=== PATIENT | female | born 2005 | race Caucasian/White ===

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

== ENCOUNTER 2025-11-08 10:57 | Outpatient (AMB) | payer OTHER, SELFPAY ==
--- NOTE | 2025-11-08 10:59 | A.OFFPC_ITS ---
Vital Signs 11/08/25 11:04 Height 5 ft 3 in Weight 183 lb BMI 32.4 BP 101/66 Blood Pressure Location Lt brachial Position Sitting Respiration 12 Pulse 69 Pulse Source Pulse Oximeter Temp 97.2 F Temp Source Oral Pulse Oximetry (%) 100 Oxygen Delivery Method Room Air Intake Visit Reasons: est care/req cpe Intake Note: New patient to establish care and cpe. [facility] [employer] Required: No Allergies No Known Allergies Allergy (Verified 11/08/25 11:00) Medication List - Last Reviewed 11/08/25 by Mateo Wolf MA loratadine 10 mg PO DAILY Tobacco use date assessed: 11/08/25 Dental Screening Dental Screen Date: 11/08/25 Did you have a dental visit in the last 12 months?: No Did you have a dental problem in the last 6 months where you did not have access to dental care?: No Was dental information given to patient?: Patient has dentist HPI HPI Comments History of Present Illness Details 20 y/o F with mild intermittent asthma, obesity Fhx: MGM with TAP PULLER ca, dm2; MGF stroke; PGM DM, cancer unsure; Dad substance use and asthma; estranged from Dad side; 3 sisters alive and well; 1 brother alive and well. Surgery: Denies Social: Living w/ Mom and sisters; [employer], grad in Spring 2025 Health Maintenance Flu 11/08/25 Tdap 2016 Pap NA Specialists: None History of Present Illness The patient is a 20 year old female presenting with establishing care for a CPE [facility] records reviewed Mild Intermittent Asthma: - The patient has a history of mild inte rmittent asthma since childhood, which primarily occurs when she is ill. - She does not currently have an inhaler and reports not feeling the need for one at this time. Seasonal Allergies: - The patient has seasonal allergies and takes loratadine daily. Obesity: - The patient has a history of obesity w ith a recorded BMI of 32.4. Irregular menstruation: - The patient has had irregular periods since menarche. - She reports that her periods are somet imes heavy and last for about four days when they occur. - She denies bad cramping and has never been on control to regulate her periods. - She describes experiencing pre-menstru al cramps even when her period does not start. - The patient is not sexually active and has never been sexually active. Past Medical History - Mild intermittent asthma, mainly when sick, not on medication, and does not feel she needs an inhaler. - Seasonal allergies, for which she take s loratadine daily. - Obesity with a BMI of 32.4. - Irregular menses since menarche, somet imes heavy, lasting about four days, without significant cramping. - No medication allergies. - History of needle phobia. Past Surgical History - No history of surgery. Social History - Marital Status: Single - Education: She is a student at [employer], studying marketing, and is expected to graduate in the spring. - Living Situation: Lives at home with h er mother and sisters, but is currently dorming for college. - Sexual History: Not sexually active, h as never been sexually active. - Substance Use: Denies smoking. - Diet: Reports eating a diet that inclu daniel everything and is not vegetarian. - Safety: Reports wearing a seatbelt whi le driving. 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 Health Maintenance - Immunizations: She is up to date on al l immunizations except for the flu shot, which she received during the visit. - Contraception: Patient agreed to start oral contraceptive pills () to regulate her menstrual cycle. - Screenings: Patient declines screening labs for diabetes and cholesterol at this time. - Dental Care: Has not seen a dentist in a few years but has an appointment scheduled. - Self-breast exams: Educated on how and when to perform self-breast exams. Review of Systems - Constitutional: Denies any current bot adrianne symptoms and reports feeling good. - Eyes: Reports wearing glasses. - Ears: Reports hearing is okay. - Gastrointestinal: Reports normal bowel movements. Denies being on a vegetarian diet. - Genitourinary: Reports normal urinatio n. Reports irregular menstrual cycles since menarche, which can be heavy at times and last about four days. Reports pre-menstrual cramping without subsequent menses. Denies severe cramping. - Skin: Denies any worries with skin, ne w lumps, or bumps. - Neurological: Denies pain or tendernes s in the neck. - Psychiatric: Denies symptoms of depres katie or anxiety. - Endocrine: Denies any changes to breas ts. Physical Exam General: Well developed, well nourished, in no acute distress. Appears stated age. Head: Normocephalic, atraumatic. Eyes: Pupils are equal, round and reactive to light and accommodation. Conjunctivae are clear. Scleras nonicteric bilat. Vision grossly normal. Ears: TMs clear AU, EACS WNL. Hearing is okay. Nose: Patent, without discharge. Neck: No carotid bruit bilat. Supple, no adenopathy or thyromegaly. No pain or tenderness. Breast: Edu on SBE. Patient advised to perform self breast exams. Lungs: Clear to auscultation bilaterally. No rales, rhonchi or wheeze noted. Good air flow in all jamison. Heart: Regular rate and rhythm. No murmurs, click, rubs or gallops are noted. Abdomen: Bowel sounds present in all quadrants. The abdomen is soft, nontender, with no masses or organomegaly noted. No hernias are noted. : Deferred. Reviewed recommendations for routine TAP PULLER. Periods are irregular, sometimes heavy, lasting about four days. No bad cramping. Not on control. Pulses: Peripheral pulses are equal and palpable bilaterally. Extremities: No clubbing, cyanosis nor edema is noted. Neurologic: Gait and station normal. Cranial Nerves 2-12 intact. Motor strength grossly symmetrical and intact. No sensory loss. Balance normal. Skin: No rashes, ulcers, or lesions noted. Turgor is good. Skin color is good. Hair and nails are without abnormalities. Psych: Normal eye contact, affect and mood appropriate, and normal interactions. Patient is alert and appropriate to context. Depression and anxiety screens negative. Medical Decision Making The patient is a 20-year-old female presenting to [facility]. Her medical history is significant for mild intermittent asthma, seasonal allergies, obesity, and irregular menstrual cycles. The asthma is stable and does not require maintenance medication. Given her irregular periods, which have been present since menarche, a discussion was had regarding management options. The patient agreed to try oral contraceptive pills (Junel) to regulate her cycle, improve potential cramping, and benefit her skin. The rationale for choosing Junel was discussed, noting her sister tolerates it well. It was explained that it can take up to a year for periods to fully regulate, especially with a history of irregular cycles, but improvement is often seen within three months. Preventive care was also discussed. The patient is up to date on immunizations and received a flu shot during the visit despite her needle phobia. Screening for diabetes and cholesterol was offered but deferred by the patient at this time, with an agreement to perform labs in the future. The patient was educated on the importance and technique of self-breast exams, with instructions to perform them monthly. A follow-up in six months was scheduled to assess the new control medication, with a yearly physical also booked. Plan 1. Irregular Menstruation - The patient agreed to start oral contr aceptive pills (Junel) to regulate her menstrual cycles. - A prescription for Junel was sent [facility], [facility] on [address] [address] in [place]. - The patient was counseled that it may take up to a year for her periods to become regular, but improvement is often seen within three months. - A follow-up visit is scheduled in six months to assess her tolerance and the effectiveness of the control. 2. Establishment Of Care - The patient established care today. A complete physical exam was performed. - Health maintenance was reviewed. The p megan's asthma is stable. She received an influenza vaccine. Screening labs were deferred at her request. - The patient was provided instructions on how to sign up for the [facility] patient portal. - A physical form was completed for her school. - A follow-up appointment for her next a nnual physical exam was scheduled in one year. 3. Self-Breast Exam Education - The patient was educated on the import ance of self-breast exams. - Instructions were given to perform the exam monthly, on a set day such as her date, since her periods are irregular. - She was advised to [employer] self breast exam for a YouTube video demonstration. - The patient was instructed to report a ny new or concerning changes that do not resolve. Patient Instructions - You will receive an influenza (flu) sh ot today. - Take your new control pill, Elina l, once every day. Try to take it at the same time each day. - Your periods may be irregular for the first few months to a year on the new control. This is normal. Your period should come during the last week of the pill pack. - Perform a self-breast exam once a galo h. Since your periods are not regular, pick a day of the month that is easy to remember, like the day of your birthday, to do the exam. - You can search for self breast exam on Google to find a video showing you how to do it properly. - Contact me through the patient portal if you have any problems with the control or notice any changes in your breasts. - At the lockstitch front edge tape sewer, please update your email address so you can sign up for the [facility] patient portal nadira. This is the best way to contact me. - Schedule your next appointment for 6 [facility] from now to check on the control, and also book your yearly physical for one year from today. - Make sure to keep your scheduled denti st appointment. Consent Patient was informed and verbally consented to the use of an ambient scribe for clinic note documentation during this visit. An additional 20 minutes was spent addressing the problem(s) noted at todays visit. This includes time spent before the visit reviewing the chart, time spent during the visit, and time spent after the visit on documentation reviewing laboratory results, diagnostic imaging, medications, performing a medically necessary evaluation, counseling on diagnoses, care coordination, ordering appropriate tests, ordering appropriate medications, review of tests performed by other providers, reporting test results with the patient, communication with other healthcare providers. [facility] Medical History (Updated 11/08/25 @ 11:43 by [facility] Asthma Surgical History (Updated 11/08/25 @ 11:08 by Mateo Wolf MA) No pertinent past surgical history Family History (Updated 11/08/25 @ 11:09 by Mateo Wolf MA) Father Asthma Maternal Grandmother HTN (hypertension) Maternal Grandfather High blood cholesterol Social History (Updated 11/08/25 @ 11:07 by Mateo Wolf MA) Household Members: Other Household Members Other:: Dorm Both parents involved: Yes Caregiver staying overnight: No Housing: Apartment Are you a primary critical care registered nurse to a significant other at home: No Do you presently have visiting nurse or other home services: No 75 years or older and lives alone: No Alcohol intake: never Patient Tobacco Use Status: Never used Tobacco Smoked in Last 30 Days: No e-Cigarette/Vaping Use: Never Used Second Hand Smoke Exposure: No service: No Current occupational status: student Current occupational exposures/hazards: No Cognitive needs: No Hearing needs: No Vision needs: No Questionnaire PHQ-9 Over the last 2 weeks, how often have you been bothered by any of the following problems? 1. Little interest or pleasure in doing things: not at all 2. Feeling down, depressed, or hopeless: not at all 3. Trouble falling or staying asleep, or sleeping too much: not at all 4. Feeling tired or having little energy: not at all 5. Poor appetite or overeating: not at all 6. Feeling bad about yourself - or that you are a failure or have let yourself or your family down: not at all 7. Trouble concentrating on things, such as reading the newspaper or watching television: not at all 8. Moving or speaking so slowly that other people could have noticed. Or the opposite - being so fidgety or restless that you have been moving around a lot more than usual: not at all 9. Thoughts that you would be better off or of hurting yourself in some way: not at all Total score: 0 Depression Screening Interpretation: Negative Depression Screening Done: Yes 38171 - PHQ-9 Billing: Yes Source: Developed by Drs. Mark Hudson, Carolina Lees, Calvin Morris and colleagues, with an educational cindy from [employer]. Thrive Questionnaire Date Thrive assessed: 11/08/25 I am a: Patient What is your living situation today?: I have a steady place to live Within the past 12 months, did the food you bought not last and you didn't have the money to get more?: Never true Within the past 12 months, did you worry whether your food would run out before you got money to buy more?: Never true Do you have trouble paying for medicines?: No Do you have trouble getting transportation to medical appointments?: No Do you have trouble paying your heating and electricity bill?: No Do you have trouble taking care of your child, family member or friend?: No Do you have trouble with day-to-day activities such as bathing, preparing meals, shopping, managing finances, etc.?: No Are you currently unemployed and looking for a job?: No Are you interested in more education?: Yes Please select the resources that you would like help with: None Currently or been in a relationship where the following occur: No concerns reported THRIVE Score: 0 AUDIT C Alcohol Use Questionnaire (AUDIT-C) 1. How often do you have a drink containing alcohol?: Never 3. How often do you have six or more drinks on one occasion?: Never Total Score: 0 Score Reviewed/Action Taken: Yes RAF-7 AMB Questionnaire RAF-7 Date RAF - 7 assessed: 11/08/25 Feeling nervous, anxious, or on edge: 0 = Not at all Not being able to stop or control worryin = Not at all Worrying too much about different things: 0 = Not at all Trouble relaxin = Not at all Being so restless that it is hard to sit still: 0 = Not at all Becoming easily annoyed or irritable: 0 = Not at all Feeling afraid as if something awful might happen: 0 = Not at all Total RAF-7 score (0-4 normal; 5-9 mild; 10-14 moderate; 15-21 severe): 0 Source: Developed by Drs. Mark Hudson, Carolina Lees, Calvin Morris and colleagues, with an educational cindy from [employer]. RAF-7 Assessment Billing RAF-7 Assessment Tool: RAF-7 Assessment 41914 ACT Questionnaire In the past 4 weeks, how much of the time did your asthma keep you from getting as much done at work, school or at home?: None of the time During the past 4 weeks, how often have you had shortness of breath?: Not at all During the past 4 weeks, how often did your asthma symptoms wake you up at night or earlier than usual in the morning?: Not at all During the past 4 weeks, how often have you had to use your rescue inhaler or n ebulizer medication?: Not at all How would you rate your asthma control during the past 4 weeks?: Completely controlled ACT Interpretation: Negative Score: 25 Physical exam (Primary Care) Vital Signs: Last Vital Signs Temp 97.2 F 11/08/25 11:04 Pulse 69 11/08/25 11:04 Resp 12 11/08/25 11:04 BP 101/66 11/08/25 11:04 Pulse Ox 100 11/08/25 11:04 Oxygen Delivery Method Room Air 11/08/25 11:04 BMI result Body Mass Index 32.4 Tobacco/Smoking Status: Tobacco use Status Tobacco use date assessed 11/08/25 11/08/25 11:03 Patient Tobacco Use Status Never used Tobacco 11/08/25 11:07 e-Cigarette/Vaping Use Never Used 11/08/25 11:07 PHQ-9: PHQ-9 Score PHQ-9: Total score 0 11/08/25 11:26 Depression Screening Interpretation: Negative Thrive Assessment: Date of Thrive Assessment Date Thrive assessed 11/08/25 11/08/25 11:03 Currently or been in a relationship where the following occur: No concerns reported Office Procedures Flu Questionnaire Does the patient have a severe egg allergy?: No Does the patient have severe life threatening allergies?: No Does the patient have a fever or illness today?: No Has the patient ever had Guillain-[place] Syndrome?: No Has the patient ever had any past reaction to a flu shot?: No Immunizations Fluarix [id number] (PF) 45 mcg (15 mcg x 3)/0.5 mL IM syringe Performing Provider: SAMI Dexter Performing Location: [facility] Administered by: Mateo Wolf MA on 11/08/25 11:41 Dose Route Admin Location Dispensed Lot Number Expiration Date NDC Non Destructive Testing Engineer 0.5 mL IM Right Deltoid 0.5 mL [id number] 05/23/26 10280-770-57 [id number] VIS Given Date VIS Provided VIS Publication Date 11/08/25 Single Vaccine 24 Eligibility Eligibility Date Funding Source Not [facility] Eligible 11/08/25 Private Coding Level of Care Code New Pt Level 2 (72357) New Pt Prev Care 18-39yr(37493 Diagnoses Encounter to establish care with new provider Z76.89 Obesity (BMI 30-39.9) E66.9 Mild intermittent asthma in adult without complication J45.20 Primary oligomenorrhea N91.3 Oligomenorrhea type: primary OCP (oral contraceptive pills) initiation Z30.011 Influenza vaccination administered at current visit Z23 Family history of stroke Z82.3 Adult general medical exam Z00.00 Additional Codes RAF-7 Assessment Billing - RAF-7 Assessment Tool: RAF-7 Assessment 71379 ([id number]) PHQ-9 - 82756 - PHQ-9 Billing: Yes ([id number]) Asthma Control Questionnaire - ACT Interpretation: Negative ([id number]) Assessment & Plan Assessment & Plan (1) Encounter to establish care with new provider: Code(s): Z76.89 - Persons encountering health services in other specified circumstances (2) Obesity (BMI 30-39.9): Code(s): E66.9 - Obesity, unspecified Category: Medical (3) Mild intermittent asthma in adult without complication: Code(s): J45.20 - Mild intermittent asthma, uncomplicated Category: Medical (4) Oligomenorrhea: Code(s): N91.5 - Oligomenorrhea, unspecified Category: Medical Qualifiers: Oligomenorrhea type: primary Qualified Code(s): N91.3 - Primary oligomenorrhea (5) OCP (oral contraceptive pills) initiation: Code(s): Z30.011 - Encounter for initial prescription of contraceptive pills Category: Medical (6) Influenza vaccination administered at current visit: Onset Date: ~11/08/25 Code(s): Z23 - Encounter for immunization Category: Medical (7) Family history of stroke: Comment: [facility] Code(s): Z82.3 - Family history of stroke Category: Medical (8) Adult general medical exam: Onset Date: ~11/08/25 Code(s): Z00.00 - Encounter for general adult medical examination without abnormal findings Category: Medical Plan . Orders: Orders Influenza [id number] Immunization Today Z23 - Encounter for immunization Medications: New norethindrone ac-eth estradiol 1.5-30 mg-mcg (Junel) 1 tab PO DAILY 63 tabs 2RF Patient Instructions: Patient Instructions - You will receive an influenza (flu) shot today. - Take your new control pill, Junel, once every day. Try to take it at the same time each day. - Your periods may be irregular for the first few months to a year on the new control. This is normal. Your period should come during the last week of the pill pack. - Perform a self-breast exam once a month. Since your periods are not regular, pick a day of the month that is easy to remember, like the day of your birthday, to do the exam. - You can search for self breast exam on [employer] to find a video showing you how to do it properly. - Contact me through the patient portal if you have any problems with the control or notice any changes in your breasts. - At the lockstitch front edge tape sewer, please update your email address so you can sign up for the [facility] patient portal nadira. This is the best way to contact me. - Schedule your next appointment for 6 months from now to check on the control, and also book your yearly physical for one year from today. - Make sure to keep your scheduled dentist appointment. Walk-In Care (Urgent Care): We Make it Easy Walk-in for urgent medical issues such as: ? Seasonal Allergies ? Insect Bites ? Cough ? Diarrhea ? Acute Asthma Attacks ? Back, Knee or Joint Pain ? Ear Infection ? Fever without a Rash ? Headaches ? Nausea ? Schu[place] Eye, Rash or Skin Irritation ? Sore Throat ? Sports Physicals ? Vomiting Most insurances are accepted. Patients do not need to be part of the [facility] [place] [facility] to seek care at the walk-in clinic. Locations [address] [place] [address] Open Friday through Friday 8am-5pm *Hours may vary due to staffing availability. To confirm Walk-In Care hours please call. [facility] , [place] [address] ? [phone] [facility] Walk-In Care in [place] provides services to ages 18 and over. Open Friday-Friday: 7 a.m. to 5 p.m. and Friday: 9 a.m. to 3 p.m.* *Hours may vary due to staffing availability. To confirm Walk-In Care hours in [place], please call [phone]. [address] [place] [address] ? [phone] [facility] Walk-In Care in [place] provides services to ages 12 and over. Open Friday-Friday: 8 a.m. to 5 p.m. Hours may vary due to staffing availability. To confirm Walk-In Care hours in [place], please call [phone]. LABORATORY SERVICES: [facility] ? Primary Location [address] [place] [address] Friday through Friday 6:00 AM ? 5:00 PM Friday 7:00 AM ? 11:00 AM* [phone] The [facility] is centrally located near the front entrance of the Medical Center for easy outpatient access. Convenient parking is provided for outpatients. *Hours may vary due to staffing availability. To confirm Laboratory hours for any location, please call [phone]. Offsite Location For your convenience, we offer offsite laboratory draw stations at the following locations: [address] [facility], [place] ? [facility] [address] [facility] [address], [address], [place] Friday through Friday 7:30 AM ? 1:00 PM* [phone] *Hours may vary due to staffing availability. To confirm Laboratory hours for any location, please call [phone]. [place] ? [facility] [address] [facility], [place] Friday through Friday 6:00 AM ? 3:30 PM* Friday 6:30 AM ? 3 PM* [phone] *Hours may vary due to staffing availability. To confirm Laboratory hours for any location, please call [phone]. [address] [facility] Friday through Friday 7:30 AM ? 4:00 PM* [phone] *Hours may vary due to staffing availability. To confirm Laboratory hours for any location, please call [phone] [place] [address] Friday through 9:00 AM ? 4:00 PM* *Hours may vary due to staffing availability. To confirm Laboratory hours for any location, please call [phone]. Appointments are not necessary. Walk-ins are welcome. Like all the departments throughout the [facility], our Lab undergoes frequent reviews to ensure the quality and accuracy of test results, and our staff takes special pride in its status as a nationally accredited facility. Patient Portal: [facility] ONE PATIENT. ONE RECORD. BETTER CARE. [facility] has a fully integrated, cutting- edge mobile electronic health information system that has revolutionized the way we care for our patients and manage our organization. This system improves communication and coordination enabling us to provide safe, higher-quality care, and an overall positive experience for staff and patients. Our first priority, as always, is to deliver the highest quality care possible. The system is running in the background supporting that priority. This portal is for all [facility] and [facility] services and practices. If you are experiencing any technical difficulties with enrolling or logging into the Patient Portal please complete the [facility] Patient Portal Technical Support Form. [facility] and [facility] now offers a new secure on-line interactive tool for patients to review their health information ? ?Patient Portal. This interactive web portal will enable patients and their families to take an active role in their care by providing easy, secure access to their health information via the internet. The Patient Portal provides patients with instant access to their health information, including laboratory results, medications, allergies, demographic information, visit history, and more. In addition to managing their own care, parents and health care proxies with authorized consent will appreciate the ability to access the records of those individuals for whom they provide care. Please note: if you wish to gain access (Proxy) to another patient?s portal, you will be required to come to the Medical Records Department in person at [facility]. Both the patient giving proxy access and the proxy will need to provide photo identification and complete the appropriate authorization. The Patient Portal also allows track their appointments online. The [facility] Patient Portal also saves patients time by allowing them to submit updates to their demographic and contact information prior to their visits. Portal email notifications will also alert patients to any new activity on their portal, such as test results and new appointments. In order to initially enroll in the [facility] Patient Portal, you will need to enter some required information including the following: * your [facility] Medical Record number * your personal home email address * name * date of Please note: In order to enroll in the [facility] Patient Portal, we need to have your email address on file in your electronic medical record. ?The email address needs to be specific for one person (yourself) in order for your Portal enrollment to be successful. ?You can update your email address in person with our Registration staff when you are registering for a hospital visit. ?O therwise, you will need to come to the Health Information Management (Medical Records) Department at [facility]. ?We are open from Friday ? Friday from 7:30 a.m. ? 4:30 p.m. ?You will be required to present a photo id. Once you have successfully enrolled in the Patient Portal, you will receive a one-time user id and password for the Portal, sent to your email address. ?This will allow you to log into the Patient Portal within 99 hrs and reset your own logon id and password, and define personal security questions. ?Once your permanent login and password have been set, you can log into the [facility] Patient Portal at any time via the blue button above or from the Portal Logon button on any page of the [facility] website. [facility] and [facility] encourage all of our patients to enroll in Patient Portal as it presents a valuable opportunity for patients and their families to actively participate in their care and stay healthy Welcome to [facility]. ?We look forward to working with you. Health screenings for women You should visit your health care provider from time to time, even if you are healthy. The purpose of these visits is to: Screen for medical issues Assess your risk for future medical problems Encourage a healthy lifestyle Update vaccinations and other preventive care services Help you get to know your provider in case of an illness Information Even if you feel fine, you should still see your provider for regular checkups. These visits can help you avoid problems in the future. For example, the only way to find out if you have high blood pressure is to have it checked regularly. High blood sugar and high cholesterol levels also may not have any symptoms in the early stages. A simple blood test can check for these conditions. There are specific times when you should see your provider or receive specific health screenings. The [place] Preventive Services Task Force publishes a list of recommended screenings. Below are screening guidelines for women ages 18 to 39. BLOOD PRESSURE SCREENING Your blood pressure should be checked at least once every 3 to 5 years if: Your blood pressure is in the normal range (top number less than 120 mm Hg and bottom number less than 80 mm Hg) You don't have risk factors for high blood pressure Ask your provider if you need your blood pressure checked more often if: The top number is 120 to 129 mm Hg or the bottom number is 70 to 79 mm Hg You have diabetes, heart disease, kidney problems, are overweight, or have certain other health conditions You have a first-degree relative with high blood pressure You are Black You had high blood pressure during a If the top number is 130 mm Hg or greater or the bottom number is 80 mm Hg or greater, this is considered stage 1 hypertension. Schedule an appointment with your provider to learn how you can reduce your blood pressure. Watch for blood pressure screenings in your area. Ask your provider if you can stop in to have your blood pressure checked. BREAST CANCER SCREENING Experts do not agree about the benefits of breast self-exams in finding breast cancer or saving lives. Talk to your provider about what is best for you. A screening mammogram is not recommended for most women under age 40. Your provider may discuss and recommend mammograms, MRI scans, or ultrasounds if you have an increased risk for breast cancer, such as: A mother or sister who had breast cancer at a young age (most often starting screening earlier than the age the close relative was diagnosed) You carry a high-risk genetic marker CERVICAL CANCER SCREENING Cervical cancer screening should start at age 21 years unless your provider advises otherwise. After the first test: Women ages 21 through 29 should have a Pap test every 3 years. Exoprts do not agree on whether HPV testing is recommended for this age group. Women ages 30 through 65 should be screened with either a Pap test every 3 years or the HPV test every 5 years or both tests every 5 years (called cotesting ). Women who have been treated for precancer (cervical dysplasia) should continue to have Pap tests for 20 years after treatment or until age 65, whichever is longer. If you have had your uterus and cervix removed (total hysterectomy), and you have not been diagnosed with cervical cancer or precancer (high grade cervical neoplasia), you do not need cervical cancer screening. CHOLESTEROL SCREENING Cholesterol screening should begin at: Age 45 for women with no known risk factors for coronary heart disease Age 20 for women with known risk factors for coronary heart disease Repeat cholesterol screening should take place: Every 5 years for women with normal cholesterol levels More often if changes occur in lifestyle (including weight gain and diet) More often if you have diabetes, heart disease, kidney problems, or certain other conditions DIABETES SCREENING You should be screened for diabetes starting at age 35 and then repeated every 3 years if you have no risk factors for diabetes. Screening may need to start earlier and be repeated more often if you have other risk factors for diabetes, such as: You have a first degree relative with diabetes. You are overweight or have obesity. You have high blood pressure, prediabetes, or a history of heart disease. Screening for diabetes should be done if you are planning to become and you are overweight and have other risk factors such as high blood pressure. DENTAL EXAM Go to the dentist once or twice every year for an exam and cleaning. Your dent ist will evaluate if you need more frequent visits. EYE EXAM Have an eye exam every 5 to 10 years before age 40. If you have vision problems, have an eye exam every 2 years or more often if recommended by your provider. You should have an eye exam that includes an examination of your retina (back of your eye) at least every year if you have diabetes. IMMUNIZATIONS Commonly needed vaccines include: Flu shot: get one every year. COVID-19 vaccine: ask your provider what is best for you. Tetanus-diphtheria and acellular pertussis (Tdap) vaccine: have one at or after age 19 as one of your tetanus-diphtheria vaccines if you did not receive it as an adolescent. Tetanus-diphtheria: have a booster (or Tdap) every 10 years. Varicella vaccine: receive 2 doses if you never had chickenpox or the varicella vaccine. Hepatitis B vaccine: receive 2, 3, or 4 doses, depending on your exact circumstances. Measles, mumps, and rubella (MMR) vaccine: receive 1 to 2 doses if you are not already immune to MMR. Your provider can tell you if you are immune. Ask your provider about the human papillomavirus (HPV) vaccine if: You have not received the HPV vaccine in the past You have not completed the full vaccine series (you should catch up on this shot) Ask your provider if you should receive other immunizations if you have certain health problems that increase your risk for some diseases such as pneumonia. INFECTIOUS DISEASE SCREENING Women who are sexually active should be screened for chlamydia and gonorrhea up until age 25. Women 25 years and older should be screened for chlamydia and gonorrhea if at high risk. Screening for hepatitis C: All adults ages 18 to 79 should get a one-time test for hepatitis C. people should be screened at every . Screening for human immunodeficiency virus (HIV): All people ages 15 to 65 should get a one-time test for HIV. Depending on your lifestyle and medical history, you may also need to be screened for infections such as syphilis and HIV, as well as other infections. PHYSICAL EXAM All adults should visit their provider from time to time, even if they are healthy. The purpose of these visits is to: Screen for disease Assess your risk of future medical problems Encourage a healthy lifestyle Update your vaccinations and other preventive care services Maintain a relationship with a provider in case of an illness Your height, weight, and BMI should be checked at every exam. During your exam, your provider may ask you about: Depression and anxiety Diet and exercise Alcohol and tobacco use Safety issues, such as using seat belts, smoke detectors, and intimate partner violence Your medicines and risk for interactions SKIN SELF-EXAM Your provider may check your skin for signs of skin cancer, especially if you're at high risk, such as if you: Have had skin cancer before Have close relatives with skin cancer Have a weakened immune system OTHER SCREENING Talk with your provider about colon cancer screening if you have a strong family history of colon cancer or polyps, or if you have had inflammatory bowel disease or polyps yourself. Routine bone density screening of women under 40 is not recommended.
[2025-11-08 11:04] VITALS: BP 101/66; PULSE 69; RESP 12; TEMP 36.2; O2SAT 100; BMI 32.4
--- OUTSIDE RECORDS SUMMARY | 2025-11-08 14:23 | XMS_ITS | Encounter Summary ---
Author Organization [facility] Address [address] [place] [address] Phone Care Team Providers Care Technical Trainer Name Role Phone Diamond Teresa MD Primary Care Provider Unavailab le Encounter Details Date Type Department Care Team (Late st Contact Info) Description 03/27/2016 Documentation [facility] [address] [place] [address] Family Medicine, Physician [address] [place] [address] Social History Tobacco Use Types Packs/Day Years Used Date Smoking Tobacco: Never Assessed Comments Unknown Sex and Gender Information Value Date Recorded Sex Assigned at Female 08/03/2021 11:23 AM EDT Legal Sex Female 5:06 PM EDT Gender Identity Female 08/03/2021 11:23 AM EDT Sexual Orientation Straight 08/03/2021 11 :23 AM EDT documented as of this encounter Plan of Treatment Not on file documented as of this encounter Visit Diagnoses Not on filedocumented in this encounter Care Teams Technical Trainer Relationship Specialty Start Date End Date Diamond Teresa MD PCP - General Pediatrics 04/29/18 05/10/19 documented as of this encounter
--- OUTSIDE RECORDS SUMMARY | 2025-11-08 14:23 | XMS_ITS | Encounter Summary ---
Author Organization [facility] Address [address] [place] [address] Phone Care Team Providers Care Basket Person Name Role Phone Diamond Teresa MD Primary Care Provider Unavailab le Encounter Details Date Type Department Care Team (Late st Contact Info) Description 05/31/2016 Documentation [facility] [place] [address] [place] [address] Family Medicine, Physician [address] [place] [address] Social History Tobacco Use Types Packs/Day Years [...] on filedocumented in this encounter Care Teams Basket Person Relationship Specialty Start Date End Date Diamond Teresa MD PCP - General Pediatrics 04/29/18 05/10/19 documented as of this encounter
--- OUTSIDE RECORDS SUMMARY | 2025-11-08 14:23 | XMS_ITS | Encounter Summary ---
Author Organization [facility] Address [address] [place] [address] Phone Care Team Providers Care Telephone Engineer Name Role Phone Diamond Teresa MD Primary Care Provider Unavailab le Encounter Details Date Type Department Care Team (Late st Contact Info) Description 04/25/2015 Documentation [facility] [place] [address] [place] [address] Family Medicine, Physician [address] [place] [address] Social History Tobacco Use Types Packs/Day Years [...] on filedocumented in this encounter Care Teams Telephone Engineer Relationship Specialty Start Date End Date Diamond Teresa MD PCP - General Pediatrics 04/29/18 05/10/19 documented as of this encounter
--- OUTSIDE RECORDS SUMMARY | 2025-11-08 14:23 | XMS_ITS | Encounter Summary ---
Author Organization [facility] Address [address] [place] [address] Phone Care Team Providers Care Property Maintenance Technician Name Role Phone Diamond Teresa MD Primary Care Provider Unavailab le Encounter Details Date Type Department Care Team (Late st Contact Info) Description 09/26/2014 Documentation [facility] [place] [address] [place] [address] Family Medicine, Physician [address] [place] [address] Social History Tobacco Use Types Packs/Day Years [...] on filedocumented in this encounter Care Teams Property Maintenance Technician Relationship Specialty Start Date End Date Diamond Teresa MD PCP - General Pediatrics 04/29/18 05/10/19 documented as of this encounter
--- OUTSIDE RECORDS SUMMARY | 2025-11-08 14:23 | XMS_ITS | Encounter Summary ---
Author Organization [facility] Address [address] [place] [address] Phone Care Team Providers Care Plan Checker Name Role Phone Diamond Teresa MD Primary Care Provider Unavailab le Encounter Details Date Type Department Care Team (Late st Contact Info) Description 11/10/2012 Documentation [facility] [place] [address] [place] [address] Family Medicine, Physician [address] [place] [address] Social History Tobacco Use Types Packs/Day Years [...] on filedocumented in this encounter Care Teams Plan Checker Relationship Specialty Start Date End Date Diamond Teresa MD PCP - General Pediatrics 04/29/18 05/10/19 documented as of this encounter
--- OUTSIDE RECORDS SUMMARY | 2025-11-08 14:23 | XMS_ITS | Encounter Summary ---
Author Organization [facility] Address [address] [place] [address] Phone Care Team Providers Care Webbing Weaver Name Role Phone Diamond Teresa MD Primary Care Provider Unavailab le Encounter Details Date Type Department Care Team (Late st Contact Info) Description 04/15/2014 Documentation [facility] [place] [address] [place] [address] Family Medicine, Physician [address] [place] [address] Social History Tobacco Use Types Packs/Day Years [...] on filedocumented in this encounter Care Teams Webbing Weaver Relationship Specialty Start Date End Date Diamond Teresa MD PCP - General Pediatrics 04/29/18 05/10/19 documented as of this encounter
--- OUTSIDE RECORDS SUMMARY | 2025-11-08 14:23 | XMS_ITS | Encounter Summary ---
Author Organization [facility] Address [address] [place] [address] Phone Care Team Providers Care Toe Stapler Name Role Phone Diamond Teresa MD Primary Care Provider Unavailab le Encounter Details Date Type Department Care Team (Late st Contact Info) Description 09/26/2014 Documentation [facility] [place] [address] [place] [address] Family Medicine, Physician [address] [place] [address] Social History Tobacco Use Types Packs/Day Years [...] on filedocumented in this encounter Care Teams Toe Stapler Relationship Specialty Start Date End Date Diamond Teresa MD PCP - General Pediatrics 04/29/18 05/10/19 documented as of this encounter
--- OUTSIDE RECORDS SUMMARY | 2025-11-08 14:23 | XMS_ITS | Encounter Summary ---
Author Organization [facility] Address [address] [place] [address] Phone Care Team Providers Care Welder Apprentice Arc Name Role Phone Diamond Teresa MD Primary Care Provider Unavailab le Encounter Details Date Type Department Care Team (Late st Contact Info) Description 04/25/2015 [place]ation [facility] [place] [address] [place] [address] Family Medicine, Physician [address] [place] [address] Social History Tobacco Use Types Packs/Day Years [...] on filedocumented in this encounter Care Teams Welder Apprentice Arc Relationship Specialty Start Date End Date Diamond Teresa MD PCP - General Pediatrics 04/29/18 05/10/19 documented as of this encounter
--- OUTSIDE RECORDS SUMMARY | 2025-11-08 14:23 | XMS_ITS | Clinical Summary ---
Author Organization [facility] Address [address] [place] [phone] Phone Care Team Providers Care Cartography Supervisor Name Role Phone Unavailable Primary Care Provider Unavailabl e Allergies No known active allergies Medications Ventolin HFA 108 (90 Base) MCG/ACT inhalerIndication s:Mild intermittent asthma without complication Inhale 2 puffs every 4 (four) hours as needed for wheezing or shortness of breath. 1 Units 3 Active loratadine 10 MG tabletIndications :Seasonal allergies TAKE 1 TABLET BY MOUTH DAILY 90 tablet 3 5 Active Active Problems Problem Noted Date Diagnosed Date Perennial allergic rhinitis 07/22/2024 Assessment & Plan (07/22/2024 5:56 PM EDT): Trial of claritin and Flonase. Gave paper rx because visit done during Epic downtime. Resolved Problems Problem Noted Date Diagnosed Date Resolved Date Pediatric obesity due to exc ess calories without serious comorbidity 06/24/2018 07/22/2024 Overview (08/20/2020): Discussed diet and exercise changes. Fasting lipid panel ordered. Mild intermittent asthma 08/01/2011 Overview (04/29/2018): Is off daily preventives for awhile and has very mild intermittent symptoms now, mostly with exercise. Uses albuterol MDI prn for rescue therapy rarely. 06/09. Assessment & Plan (07/22/2024 5:55 PM EDT): No meds in years. Will d/c diagnosis from problem list. ACT Score: 24 This score suggests that asthma symptoms are well controlled. Assessment & Plan (08/29/2022 2:02 PM EDT): Keeps albuterol inhaler at home, extremely rare use. Hasn't needed one in school in many years. Albuterol 2 puffs q4h prn. Assessment & Plan (08/03/2021 11:07 AM EDT): Doesn't ever need inhaler at school, hasn't kept one there in many years. Albuterol prn. Assessment & Plan (05/25/2021 4:07 PM EDT): Needs new MDI and aerochamber- prescribed today. Instructed to try for cough and if helpful, continue 2-4 puffs q4-6 hours during illness. Assessment & Plan (07/05/2019 2:32 PM EDT): Doing well, very mild intermittent. ACT score 25. Albuterol HFA prn, med order for school, Asthma Action Plan. Encounters Date Type Department Care Team Description 09/15/2025 Telephone [facility] - [address] [address] Sindy Campoverde MD Medical Records from Last 3 Months Immunizations Immunization Administration Dates Next Due COVID-19 Pfizer, bivalent, 12+ years 08/29/2022 DTaP 5 2009, 6,2005,07/02,2005 HPV Vaccine 9 Valent 06/24/2018,06/04/2017 Hep A, ped/adol 05/30/2016,04/24/2015 Hep B, ped/adol 2005,2005,2005 Hib (HbOC) 2005,2005,2005 Hib (PRP-T) 06/02/2006 IPV 2009, 6,2005,06/08 /2005 Influenza Split 09/15/2013,11/09/2012,08/01/2011 Influenza, injectable, quadrivalent 09/24/2016,1 Influenza, injectable, quadr ivalent, preservative free 07/18/2023,08/29/2022,08/03/2021,08/11,09/16/2019,09/26/2018 Influenza, injectable, trivalent 018,12/31/2017,09/19/2008,10/29 MMR 2009,02/28/2006 Meningococcal B Trumenba 07/18/2023,08/29/2022 Meningococcal Conj (Menactra) MCV4P 08/03/2021,0 06/04/2017 Pneumococcal Conjugate 06/02/2006,2004,2005,05/01 Tdap 05/30/2016 Varicella 2009,02/28/2006 Family History Medical History Relation Name Comments Asthma Father Substance abuse Father Cancer Maternal Grandmother Diabetes Maternal Grandmother Obesity Maternal Grandmother No Known Problems Mother Shey Ramirez Diabetes Paternal Grandmother No Known Problems Sister Neftaly Hayes Relation Name Status Comments Father Alive Father: Alive a nd well Maternal Grandfather Materna l uncle: Leukemia Maternal Grandmother Materna l grandmother: Diabetes mellitus, Hypertension Mother Shey Ramirez Alive Mother: Alive and well Paternal Grandmother Sister Neftaly Hayes Alive Social History Tobacco Use Types Packs/Day Years Used Date Smoking Tobacco: Never Smokeless Tobacco: Never Alcohol Use Standard Drinks/Week Comments No 0 (1 standard drink = 0.6 oz pur e alcohol) Hunger/Food Answer Date Recorded In the last 12 months, did y ou or your family ever eat less than you felt you should because there wasn't enough money for food? No 07/22/2024 Stable Housing Answer Date Recorded Are you worried that in the next 2 months you may not have stable housing? No 07/22/2024 Transportation Concerns Answer Date Rec orded In the last 12 months, have you or your family ever had to go without healthcare because you didn't have a way to get there? No 07/22/2024 Hazards in Home Answer Date Recorded Think about the place you li ve. Do you have problems with any of the following? Pests (mice or roaches), mold, no/not working smoke detectors, water leaks, no window guards. No 2023 Financing Utilities Answer Date Recorde d In the last 12 months, has t he electric, gas, oil, or water company threatened to shut off your services in your home? No 07/22/2024 Safety at Home Answer Date Recorded Are you or your family worried about feeling saf e in your home? No 07/22/2024 Outside Support Answer Date Recorded Do you feel that you need mo re support from other people or programs to help you care for yourself or your family? No 07/22/2024 Understanding Health Concerns Answer Da te Recorded Do you need help understandi ng your or your child's healthcare needs (diagnosis, medications, plan, etc.)? No 07/22/2024 Financing Health Concerns Answer Date R ecorded In the last 12 months, was t here a time when your child needed to see a doctor or get medications or supplies but could not because of cost? No 07/22/2024 Missing School or Work Answer Date Delfino rded Did you or your child miss s chool or work because of a health problem that could have been avoided? No 07/22/2024 Child Education Answer Date Recorded Do you have concerns about y our/your child's learning or behavior in school, preschool, or daycare? No 07/22/2024 Comments No Sex and Gender Information Value Date Recorded Sex Assigned at Female 08/03/2021 11:23 AM EDT Legal Sex Female 5:06 PM EDT Gender Identity Female 08/03/2021 11:23 AM EDT Sexual Orientation Straight 08/03/2021 11 :23 AM EDT Last Filed Vital Signs Vital Sign Reading Time Taken Comments Blood Pressure 120/65 07/22/2024 5:57 PM EDT Pulse 76 07/18/2023 3:03 PM EDT Temperature 37.3 C (99.1 F) 04/14/2023 11:38 AM EDT Respiratory Rate - - Oxygen Saturation 100% 08/01/2011 12:00 AM EDT Inhaled Oxygen Concentration - - Weight 84 kg (185 lb 4 oz) 07/22/2024 5:57 PM ED T Height 162.6 cm (5' 4 ) 07/22/2024 5:57 PM EDT Body Mass Index 31.8 07/22/2024 5:57 PM EDT Plan of Treatment Health Maintenance Due Date Last Done Comments Influenza Vaccines (#1) 2025 07/24/20 24, 07/18/2023, 08/29/2022, Additional history exists COVID-19 Vaccine (6 - 2024-2 6 season) 2025 07/24/2024, 08/29/2022, 12/15/2021, Additional history exists DTaP,Tdap,and Td Vaccines (7 - Td or Tdap) 05/30/2026 05/30/2016, 2009, 09/03/2006, Additional history exists Hepatitis B Vaccines Completed 2005, 2005, 2005 HIB Vaccines Completed 06/02/2006, 08/24, 2005, Additional history exists Pneumococcal Vaccine Completed 06/02/2006, 2005, 2005, Additional history exists IPV Vaccines Completed 2009, 04/2006, 2005, Additional history exists MMR Vaccines Completed 2009, 02/28/2006 Varicella Vaccines Completed 2009, 02/28/2006 Hepatitis A Vaccines Completed 05/30/2016, 04/24/20 15 HPV Vaccines Completed 06/24/2018, 06/04/2017 Meningococcal Vaccine Completed 08/03/2021, 017 Men B Vaccine Completed 07/18/2023, 08/29/2022 Procedures * Due to [place] [employer] law, this organization might not be sharing sensitive test results. Procedure Name Priority Date/Time Associated Diagnosis Comments CHLAMYDIA AND GONORRHEA, AMPLIFIED Routine 07/18/2023 3:21 PM EDT Encounter for screening examination for chlamydial infection from Last 3 Months or Most Recently Relevant to Health Maintenance Results * Due to [place] [employer] law, this organization might not be sharing sensitive test results. * Chlamydia and Gonorrhoea, Amplified (07/18/2023 3:21 PM EDT) Chlamydia Trachomatis, DNA Probe NEGATIVE (NEG) [facility] Comment: No Chlamydia Trachomatis RNA detected in this patient's sample (REFERENCE RANGE/NORMAL VALUE: NOT DETECTED) Note: This test uses java lead architect- mediated amplification method to detect rRNA from C. Trachomatis URINE GC AMP PROBE NEGATIVE (NEG) [facility] Comment: No Neisseria Gonorrhoeae RNA detected in this patient's sample (REFERENCE RANGE/NORMAL VALUE: NOT DETECTED) NOTE: This test uses java lead architect-mediated amplification method to detect rRNA from N.Gonorrhoeae. A negative result does not preclude infection. In the case of a negative urine result, testing of an endocervical(female) or urethral (male) specimen is recommended if there is high clinical suspicion of infection. Due to very high sensitivity of Nucleic Acid Amplification Test, false positive results may occur. Therefore, specimen handling is extremely important. In patients in whom the disease is unlikely, additional sample for testing should be considered after an initial positive result. The performance characteristics of this test have not been evaluated in children. The Aptima Combo2 assay is not intended for the evaluation of suspected sexual abuse or for other medico-legal indications. The ordering provider should assess if the patient had consensual sex without risk of sexual abuse. Consult the [facility] if needed. Contact phone number . Therapeutic failure or success cannot be determined with the Aptima Combo2 assay since nucleic acid may persist following appropriate antimicrobial therapy. The Centers for Disease Control and Prevention (CDC) recommends confirmatory retesting using culture or a different nucleic acid amplification test when positive results occur, if indicated. Testing performed or reported by [facility], a Service of [facility], [address] [place] [id number] Rambo Ryder MD, Pattern Perforating Machine Operator [facility]# [id number] Urine (Urine) 07/18/2023 3:2 1 PM EDT 07/18/2023 11:47 PM EDT us Sindy Campoverde MD LAB MICROBIOLOGY - GENERAL ORDER SHAMIKA Final Result [facility] from Last 3 Months or Most Recently Relevant to Health Maintenance
--- OUTSIDE RECORDS SUMMARY | 2025-11-08 14:24 | XMS_ITS | Encounter Summary ---
Author Organization [facility] Address [address] [place] [address] Phone Care Team Providers Care Oracle Adf Consultant Name Role Phone Diamond Teresa MD Primary Care Provider Unavailab le Encounter Details Date Type Department Care Team (Late st Contact Info) Description 03/20/2012 Documentation [facility] [place] [address] [place] [address] Family Medicine, Physician [address] [place] [address] Social History Tobacco Use Types Packs/Day Years [...] on filedocumented in this encounter Care Teams Oracle Adf Consultant Relationship Specialty Start Date End Date Diamond Teresa MD PCP - General Pediatrics 04/29/18 05/10/19 documented as of this encounter
--- OUTSIDE RECORDS SUMMARY | 2025-11-08 14:24 | XMS_ITS | Encounter Summary ---
Author Organization [facility] Address [address] [place] [address] Phone Care Team Providers Care Maintenance Superintendent Name Role Phone Diamond Teresa MD Primary Care Provider Javier le Encounter Details Date Type Department Care Team ([facility] st Contact Info) Description 07/10/2017 Conversion Encounter [address] [address] Social History Tobacco Use Types Packs/Day Years [...] on filedocumented in this encounter Care Teams Maintenance Superintendent Relationship Specialty Start Date End Date Diamond Teresa MD PCP - General Pediatrics 04/29/18 05/10/19 documented as of this encounter
--- OUTSIDE RECORDS SUMMARY | 2025-11-08 14:24 | XMS_ITS | Encounter Summary ---
Author Organization [facility] Address [address] [place] [address] Phone Care Team Providers Care Reservations Sales Agent Name Role Phone Diamond Teresa MD Primary Care Provider Unavailab le Encounter Details Date Type Department Care Team (Late st Contact Info) Description 02/04/2011 Documentation [facility] [place] [address] [place] [address] Family Medicine, Physician [address] [place] [address] Social History Tobacco Use Types Packs/Day Years [...] on filedocumented in this encounter Care Teams Reservations Sales Agent Relationship Specialty Start Date End Date Diamond Teresa MD PCP - General Pediatrics 04/29/18 05/10/19 documented as of this encounter
--- OUTSIDE RECORDS SUMMARY | 2025-11-08 14:24 | XMS_ITS | Encounter Summary ---
Author Organization [facility] Address [address] [place] [address] Phone Care Team Providers Care Automotive Leasing Sales Representative Name Role Phone Diamond Teresa MD Primary Care Provider Unavailab le Encounter Details Date Type Department Care Team (Late st Contact Info) Description 03/25/[address] [facility] [place] Family [place] [address] [place] [address] Family Medicine, Physician [address] [place] [address] Social History Tobacco Use Types Packs/Day Years [...] on filedocumented in this encounter Care Teams Automotive Leasing Sales Representative Relationship Specialty Start Date End Date Diamond Teresa MD PCP - General Pediatrics 04/29/18 05/10/19 documented as of this encounter
--- OUTSIDE RECORDS SUMMARY | 2025-11-08 14:24 | XMS_ITS | Encounter Summary ---
Author Organization [facility] Address [address] [place] [address] Phone Care Team Providers Care Platform Stapler Name Role Phone Diamond Teresa MD Primary Care Provider Unavailab le Encounter Details Date Type Department Care Team (Late st Contact Info) Description 09/25/[address] [facility] [place] [address] [place] [address] Family Medicine, Physician [address] [place] [address] Social History Tobacco Use Types Packs/Day Years [...] on filedocumented in this encounter Care Teams Platform Stapler Relationship Specialty Start Date End Date Diamond Teresa MD PCP - General Pediatrics 04/29/18 05/10/19 documented as of this encounter
--- OUTSIDE RECORDS SUMMARY | 2025-11-08 14:24 | XMS_ITS | Encounter Summary ---
Author Organization [facility] Address [address] [place] [address] Phone Care Team Providers Care Environmental Engineering Aide Name Role Phone Diamond Teresa MD Primary Care Provider Unavailab le Encounter Details Date Type Department Care Team (Late st Contact Info) Description 10/23/2012 Documentation [facility] [place] [address] [place] [address] Family Medicine, Physician [address] [place] [address] Social History Tobacco Use Types Packs/Day Years [...] on filedocumented in this encounter Care Teams Environmental Engineering Aide Relationship Specialty Start Date End Date Diamond Teresa MD PCP - General Pediatrics 04/29/18 05/10/19 documented as of this encounter
--- OUTSIDE RECORDS SUMMARY | 2025-11-08 14:24 | XMS_ITS | Encounter Summary ---
Author Organization [facility] Address [address] [place] [address] Phone Care Team Providers Care Mold Cleaning And Storage Supervisor Name Role Phone Diamond Teresa MD Primary Care Provider Unavailab le Encounter Details Date Type Department Care Team (Late st Contact Info) Description 03/20/2012 [place] [facility] [place] [address] [place] [address] Family Medicine, Physician [address] [place] [address] Social History Tobacco Use Types Packs/Day Years [...] on filedocumented in this encounter Care Teams Mold Cleaning And Storage Supervisor Relationship Specialty Start Date End Date Diamond Teresa MD PCP - General Pediatrics 04/29/18 05/10/19 documented as of this encounter
--- OUTSIDE RECORDS SUMMARY | 2025-11-08 14:24 | XMS_ITS | Encounter Summary ---
Author Organization [facility] Address [address] [place] [address] Phone Care Team Providers Care Host Hostess Name Role Phone Diamond Teresa MD Primary Care Provider Unavailab le Encounter Details Date Type Department Care Team (Late st Contact Info) Description 06/04/2017 Documentation [facility] [place] [address] [place] [address] Family Medicine, Physician [address] [place] [address] Social History Tobacco Use Types Packs/Day Years [...] on filedocumented in this encounter Care Teams Host Hostess Relationship Specialty Start Date End Date Diamond Teresa MD PCP - General Pediatrics 04/29/18 05/10/19 documented as of this encounter
--- OUTSIDE RECORDS SUMMARY | 2025-11-08 14:24 | XMS_ITS | Encounter Summary ---
Author Organization [facility] Address [address] [place] [address] Phone Care Team Providers Care Horticultural Services Supervisor Name Role Phone Diamond Teresa MD Primary Care Provider Unavailab le Encounter Details Date Type Department Care Team (Late st Contact Info) Description 05/31/2016 Documentation [facility] [place] [address] [place] [address] Family Medicine, Physician [address] [place] [address] Social History Tobacco Use Types Packs/Day Years [...] on filedocumented in this encounter Care Teams Horticultural Services Supervisor Relationship Specialty Start Date End Date Diamond Teresa MD PCP - General Pediatrics 04/29/18 05/10/19 documented as of this encounter
--- OUTSIDE RECORDS SUMMARY | 2025-11-08 14:24 | XMS_ITS | Encounter Summary ---
Author Organization [facility] Address [address] [place] [id number] Phone Care Team Providers Care Airplane Tube Builder Name Role Phone Unavailable Primary Care Provider Unavailabl e Reason for Visit * Reason Comments Med Refill Encounter Details Date Type Department Care Team ([facility] Contact Info) Description 07/15/2022 Refill [facility] [address] [place] [address] Anu Cardoza MD [address] [place] [address] Mild intermittent asthma without complication Social History Tobacco Use Types Packs/Day Years Used Date Smoking Tobacco: Never Smokeless Tobacco: Never Alcohol Use Standard Drinks/Week Comments No 0 (1 standard drink = 0.6 oz pur e alcohol) Hunger/Food Answer Date Recorded In the last 12 months, did y ou or your family ever eat less than you felt you should because there wasn't enough money for food? No 08/03/2021 Stable Housing Answer Date Recorded Are you worried that in the next 2 months you may not have stable housing? No 08/03/2021 Transportation Concerns Answer Date Rec orded In the last 12 months, have you or your family ever had to go without healthcare because you didn't have a way to get there? No 08/03/2021 Hazards in Home Answer Date Recorded Think about the place you li ve. Do you have problems with any of the following? Pests (mice or roaches), mold, no/not working smoke detectors, water leaks, no window guards. No 2020 Financing Utilities Answer Date Recorde d In the last 12 months, has t he electric, gas, oil, or water company threatened to shut off your services in your home? No 08/03/2021 Safety at Home Answer Date Recorded Are you or your family worried about feeling saf e in your home? No 08/03/2021 Outside Support Answer Date Recorded Do you feel that you need mo re support from other people or programs to help you care for yourself or your family? No 08/03/2021 Understanding Health Concerns Answer Da te Recorded Do you need help understandi ng your or your child's healthcare needs (diagnosis, medications, plan, etc.)? No 08/03/2021 Financing Health Concerns Answer Date R ecorded In the last 12 months, was t here a time when your child needed to see a doctor or get medications or supplies but could not because of cost? No 08/03/2021 Missing School or Work Answer Date Delfino rded Did you or your child miss s chool or work because of a health problem that could have been avoided? No 08/03/2021 Comments No Sex and Gender Information Value Date Recorded Sex Assigned at Female 08/03/2021 11:23 AM EDT Legal Sex Female 5:06 PM EDT Gender Identity Female 08/03/2021 11:23 AM EDT Sexual Orientation Straight 08/03/2021 11 :23 AM EDT documented as of this encounter Miscellaneous Notes * Telephone Encounter - Renuka Dorsey LPN - 07/15/2022 1:37 PM EDT SL PCP EK - Pharm requesting refill of ProAir inhaler. Last PE 08/03/21, PE booked for 08/29. Script last sent 07/05/19, 2 units 5 refills. documented in this encounter Plan of Treatment Not on file documented as of this encounter Visit Diagnoses Diagnosis Mild intermittent asthma without complication documented in this encounter
--- OUTSIDE RECORDS SUMMARY | 2025-11-08 14:24 | XMS_ITS | Encounter Summary ---
Author Organization [facility] Address [address] [place] [address] Phone Care Team Providers Care Director Of Design Name Role Phone Diamond Teresa MD Primary Care Provider Unavailab le Encounter Details Date Type Department Care Team (Late st Contact Info) Description 03/25/2013 Documentation [facility] [place] Medicine [address] [place] [address] Family Medicine, Physician [address] [place] [address] Social History Tobacco Use Types Packs/Day Years [...] on filedocumented in this encounter Care Teams Director Of Design Relationship Specialty Start Date End Date Diamond Teresa MD PCP - General Pediatrics 04/29/18 05/10/19 documented as of this encounter
--- OUTSIDE RECORDS SUMMARY | 2025-11-08 14:24 | XMS_ITS | Encounter Summary ---
Author Organization [facility] Address [address] [place] [address] Phone Care Team Providers Care Clinical Professor Name Role Phone Diamond Teresa MD Primary Care Provider Unavailab le Encounter Details Date Type Department Care Team (Late st Contact Info) Description 09/25/2016 Documentation [facility] [place] [address] [place] [address] Family Medicine, Physician [address] [place] [address] Social History Tobacco Use Types Packs/Day Years [...] on filedocumented in this encounter Care Teams Clinical Professor Relationship Specialty Start Date End Date Diamond Teresa MD PCP - General Pediatrics 04/29/18 05/10/19 documented as of this encounter
--- OUTSIDE RECORDS SUMMARY | 2025-11-08 14:24 | XMS_ITS | Encounter Summary ---
Author Organization [facility] Address [address] [place] [address] Phone Care Team Providers Care Tapper Helper Name Role Phone Diamond Teresa MD Primary Care Provider Unavailab le Encounter Details Date Type Department Care Team (Late st Contact Info) Description 08/02/2011 Documentation [facility] [place] Family Medicine [address] [place] [address] Family Medicine, Physician [address] [place] [address] Social History Tobacco Use Types Packs/Day Years [...] on filedocumented in this encounter Care Teams Tapper Helper Relationship Specialty Start Date End Date Diamond Teresa MD PCP - General Pediatrics 04/29/18 05/10/19 documented as of this encounter
--- OUTSIDE RECORDS SUMMARY | 2025-11-08 14:24 | XMS_ITS | Encounter Summary ---
Author Organization [facility] Address [address] [place] [address] Phone Care Team Providers Care Thermal Cutter Hand Name Role Phone Diamond Teresa MD Primary Care Provider Unavailab le Encounter Details Date Type Department Care Team (Late st Contact Info) Description 06/04/2017 Documentation [facility] [place] Family Medicine [address] [place] [address] Family Medicine, Physician [address] [place] [address] Social History Tobacco Use Types Packs/Day Years [...] on filedocumented in this encounter Care Teams Thermal Cutter Hand Relationship Specialty Start Date End Date Diamond Teresa MD PCP - General Pediatrics 04/29/18 05/10/19 documented as of this encounter
--- OUTSIDE RECORDS SUMMARY | 2025-11-08 14:24 | XMS_ITS | Encounter Summary ---
Author Organization [facility] Address [address] [place] [address] Phone Care Team Providers Care Hematologist Name Role Phone Diamond Teresa MD Primary Care Provider Unavailab le Encounter Details Date Type Department Care Team (Late st Contact Info) Description 09/16/2013 Documentation [facility] [place] [address] [place] [address] Family Medicine, Physician [address] [place] [address] Social History Tobacco Use Types Packs/Day Years [...] on filedocumented in this encounter Care Teams Hematologist Relationship Specialty Start Date End Date Diamond Teresa MD PCP - General Pediatrics 04/29/18 05/10/19 documented as of this encounter
== END 2025-11-08 11:44 | disposition home or self-care (01) ==
LOC: HO.HMCFM 10:58
PROVIDERS: PCP Nurse Practitioner Family; Visit Provider Nurse Practitioner Family
DX: Z00.00 Encounter for general adult medical examination without abnormal findings (principal); E66.9 Obesity, unspecified; Z68.32 Body mass index [BMI] 32.0-32.9, adult; J45.20 Mild intermittent asthma, uncomplicated; N91.3 Primary oligomenorrhea; Z30.011 Encounter for initial prescription of contraceptive pills; Z23 Encounter for immunization; Z82.3 Family history of stroke

== ENCOUNTER → 2025-11-08 10:57 | Outpatient (BNVA) | payer OTHER, SELFPAY | PROVIDERS: PCP Nurse Practitioner Family; Visit Provider Nurse Practitioner Family | DX: Z00.00 Encounter for general adult medical examination without abnormal findings (principal); Z23 Encounter for immunization; Z76.89 Persons encountering health services in other specified circumstances; J45.20 Mild intermittent asthma, uncomplicated; E66.9 Obesity, unspecified; Z68.32 Body mass index [BMI] 32.0-32.9, adult; N91.3 Primary oligomenorrhea; Z82.3 Family history of stroke; Z13.31 Encounter for screening for depression; Z13.39 Encounter for screening examination for other mental health and behavioral disorders | CPT/HCPCS: 90471; 90656; 96127; 96160; 99202; 99385 ==